=== PATIENT | female | born 1960 | race Caucasian/White ===

== ENCOUNTER 2021-06-10 16:11 | Emergency (ER) | payer OTHER ==
[~2021-06-10] VITALS: Ht 157.5 cm; Wt 57.6 kg
[2021-06-10] MEDS ORDERED: NAPROXEN500 MG PO (19:28)
== END 2021-06-10 19:55 | disposition home or self-care (01) ==
LOC: FER 16:11
DX: S96.912A Strain of unspecified muscle and tendon at ankle and foot level, left foot, initial encounter (principal); I10 Essential (primary) hypertension; F17.210 Nicotine dependence, cigarettes, uncomplicated; Z88.2 Allergy status to sulfonamides; Z88.8 Allergy status to other drugs, medicaments and biological substances; Z79.899 Other long term (current) drug therapy
CPT/HCPCS: 73610; 93971; J1885